=== PATIENT | male | born 1980 | race Caucasian/White ===

== ENCOUNTER 2019-04-12 10:17 | Emergency (ER) | payer SELFPAY ==
[~2019-04-12] VITALS: Ht 165.1 cm; Wt 87.0 kg
[2019-04-12] MEDS: ACETAMINOPHEN 500MG TABLET PO ONE (11:16)
[2019-04-12 11:24] LABS: BASOPHILS % 0.8 % (0.0-2.0); EOSINOPHILS % 2.8 % (0.0-5.0); HEMATOCRIT. 44.8 % (42.0-52.0); HEMOGLOBIN. 15.1 g/dL (14.0-18.0); LYMPHOCYTES % 31.7 % (20.0-50.0); MEAN CORPUSCULAR HEMOGLOBIN 30.6 pg (28.0-32.0); MEAN CORPUSCULAR VOLUME 91.1 fL (80.0-94.0); MEAN PLATELET VOLUME 9.1 fl (7.4-10.4); MONOCYTES % 8.1 % (2.0-8.0); NEUTROPHILS % 56.6 % (40.0-76.0); PLATELET 191 x1000/uL (130-400); RED BLOOD CELL COUNT 4.92 mill/uL (4.7-6.1); RED CELL DISTRIBUTION WIDTH 13.3 % (11.6-14.6)
[2019-04-12 11:27] LABS: CHLORIDE 106 mEq/L (98-107)
[2019-04-12 11:55] LABS: INR 1.1; PARTIAL THROMBOPLASTIN TIME 28.2 sec (23.4-31.0); PROTHROMBIN TIME 10.8 sec (9.6-11.0)
[2019-04-12 14:11] VITALS: BP 128/68
== END 2019-04-12 14:37 | disposition home or self-care (01) ==
LOC: ER 10:17
DX: R51 Headache (principal); R07.89 Other chest pain; R20.0 Anesthesia of skin; R03.0 Elevated blood-pressure reading, without diagnosis of hypertension
CPT/HCPCS: 36415; 70551; 71045; 83880; 84484; 93005; 99284